=== PATIENT | female | born 1975 ===

== ENCOUNTER 2022-02-26 18:00 | Outpatient (CLI) | payer BC | END 2022-02-26 18:01 | disposition home or self-care (01) | LOC: SLEEPLAB 18:00 | PROVIDERS: ATTEND Otolaryngology Plastic Surgery within the Head & Neck | DX: G47.33 Obstructive sleep apnea (adult) (pediatric) (principal); G25.81 Restless legs syndrome; R06.83 Snoring; G47.61 Periodic limb movement disorder; G47.00 Insomnia, unspecified; G47.10 Hypersomnia, unspecified | CPT/HCPCS: 95800 ==